=== PATIENT | female | born 1980 | race African-American/Black ===

== ENCOUNTER 2019-11-12 08:36 | Outpatient (CLI) | payer BC, SELFPAY ==
--- NOTE | ~2019-11-12 | US_ITS ---
EXAMINATION: US pelvic complete w TV DATE: 11/12/2019 09:22 INDICATION: Pelvic pain. TECHNIQUE: Multiple transabdominal and transvaginal sonographic images of the pelvis were obtained. COMPARISON: None. FINDINGS: TRANSABDOMINAL ULTRASOUND: The uterus measures 9.2 x 5.2 x 5.1 cm. There is trace free fluid in the pelvis. TRANSVAGINAL ULTRASOUND: The endometrial complex measures 14 mm in thickness. The right ovary measures 4.6 x 2.0 x 1.9 cm. The left ovary measures 2.7 x 2.3 x 1.8 cm. There is normal vascular flow in the ovaries. IMPRESSION: 1. Normal pelvis. Reviewed, dictated and finalized at location A. IMPRESSION: 1. Normal pelvis.
== END 2019-11-12 08:37 | disposition home or self-care (01) ==
PROVIDERS: PCP Internal Medicine; Visit Provider Nurse Practitioner
DX: R10.30 Lower abdominal pain, unspecified (principal)
CPT/HCPCS: 76830; 76856

== ENCOUNTER 2020-10-05 12:42 | Outpatient (CLI) | payer BC, SELFPAY ==
--- NOTE | ~2020-10-05 | CT_ITS ---
EXAMINATION: CT abdomen pelvis w con DATE: 10/05/2020 13:13 INDICATION: Abdominal pain for 2 weeks. Lower abdominal pain. Nausea. TECHNIQUE: Computed tomography (CT) of the abdomen and pelvis was performed with 100 cc Omnipaque 350 intravenous contrast. Automated exposure control and iterative reconstruction technique were employe d. Exam dose: 445.70 mGy-cm total exam DLP. COMPARISON: 12/13/2016 CT abdomen FINDINGS: The lung bases are clear. Normal heart size. No pericardial or pleural effusion. 12 mm left hepatic cyst. The liver is otherwise unremarkable. The gallbladder is present. No gallblad lazara wall thickening or pericholecystic fluid or fat stranding. Normal caliber of the bile ducts and p ancreatic duct. No pancreatic mass lesion or calcification. Normal splenic size. Normal morphology of the adrenal glands. Probable 3 mm right renal cyst, too small to definitively characterize. There are several left renal probable cysts including one larger cyst measuring 9 mm. No ureteral calculus or hydroureteronephrosi s. Normal caliber of the abdominal aorta. No intraperitoneal or retroperitoneal or pelvic mass lesion or lymphadenopathy. 4.2 cm right ovarian cyst. There is mild likely physiologic free fluid in the cul-de-sac. The urinary bladder is unremarkable. Normal appendix. No bowel obstruction, bowel wall thickening, pneumatosis or intraperitoneal free air is detected. Included skeletal structures are unremarkable. IMPRESSION: 4.2 cm right ovarian cyst 12 mm hepatic cyst Bilateral renal cysts Normal appendix Reviewed, dictated and finalized at [facility]. Reviewed, dictated and finalized at location A. EL BUFFER
== END 2020-10-05 12:43 | disposition home or self-care (01) ==
PROVIDERS: PCP Internal Medicine; Visit Provider Clinical Nurse Specialist
DX: R10.9 Unspecified abdominal pain (principal); K76.89 Other specified diseases of liver; N28.1 Cyst of kidney, acquired
CPT/HCPCS: 74177; Q9967

== ENCOUNTER 2020-11-03 15:08 | Outpatient (CLI) | payer BC, SELFPAY ==
--- NOTE | ~2020-11-03 | MR_ITS ---
EXAMINATION: MR cervical spine wo con EXAM DATE: 11/03/2020 15:52 INDICATION: Neck pain. TECHNIQUE: Multi-sequential, multiplanar MR images of the cervical spine were obtained without contra st. Axial T2, axial T2 MERGE sequence. Sagittal T1, T2, T2 fat saturation images also obtained. Th ere is no prior study for comparison. FINDINGS: The vertebral bodies are aligned in the AP dimension. Vertebral body and disc heights are well-maintained. The spinal cord signal intensity and intrinsic morphology is normal. Cervicomedullar y junction is normal in appearance. There are no suspicious marrow signal abnormalities. Paraspinal s oft tissue is unremarkable. Level by level evaluation: C2-C3: Disc does not extend beyond the endplate margin. Uncovertebral joint arthropathy: None. Facet joint arthropathy: None. Neural foraminal stenosis: No stenosis. Central canal stenosis: No stenosis. C3-C4: Disc does not extend beyond the endplate margin. Uncovertebral joint arthropathy: Mild bilateral. Facet joint arthropathy: Mild bilateral. Neural foraminal stenosis: No stenosis. Central canal stenosis: No stenosis. C4-C5: Disc does not extend beyond the endplate margin. Uncovertebral joint arthropathy: Mild bilateral. Facet joint arthropathy: Mild bilateral. Neural foraminal stenosis: No stenosis. Central canal stenosis: No stenosis. C5-C6: Disc does not extend beyond the endplate margin. Uncovertebral joint arthropathy: Mild bilateral. Facet joint arthropathy: Mild bilateral. Neural foraminal stenosis: No stenosis. Central canal stenosis: No stenosis. C6-C7: Disc does not extend beyond the endplate margin. Uncovertebral joint arthropathy: Mild bilateral. Facet joint arthropathy: Mild bilateral. Neural foraminal stenosis: No stenosis. Central canal stenosis: No stenosis. C7-T1: Disc does not extend beyond the endplate margin. Uncovertebral joint arthropathy: None. Facet joint arthropathy: Mild bilateral. Neural foraminal stenosis: No stenosis. Central canal stenosis: No stenosis. IMPRESSION: 1. Mild cervical arthropathy. No stenosis. Reviewed, dictated and finalized at location A.
== END 2020-11-03 15:09 | disposition home or self-care (01) ==
PROVIDERS: PCP Internal Medicine; Visit Provider Clinical Nurse Specialist
DX: M47.813 Spondylosis without myelopathy or radiculopathy, cervicothoracic region (principal)
CPT/HCPCS: 72141

== ENCOUNTER 2021-08-23 11:04 | Outpatient (CLI) | payer BC, SELFPAY ==
--- NOTE | ~2021-08-23 | XR_ITS ---
EXAMINATION: XR chest 2V EXAM DATE: 08/23/2021 11:22 INDICATION: Cough. TECHNIQUE: Frontal and lateral projections of the chest obtained and reviewed. There is no prior supa dy for comparison. FINDINGS: The lungs are clear. There are no pleural effusions. The cardiomediastinal silhouette is within normal limits. There is no pneumothorax suspected. The bones and soft tissues are unremarkab le. IMPRESSION: No acute cardiopulmonary findings. Reviewed, dictated and finalized at location A. PROCEDURE
--- NOTE | 2021-08-23 11:24 | ECG_ITS ---
Measurements Intervals [place] Rate: 82 P: 80 SD: 160 QRS: 67 QRSD: 86 T: 0 QT: 357 QTc: 419 Interpretive Statements SINUS RHYTHM NONSPECIFIC T-WAVE ABNORMALITY- INFERIOR LEADS BASELINE WANDER- I, II BORDERLINE ECG Electronically Signed On 08-23-2021 12:43:58 [employer] by Markos Whitman D.O.
== END 2021-08-23 11:05 | disposition home or self-care (01) ==
PROVIDERS: PCP Internal Medicine; Visit Provider Nurse Practitioner
DX: R07.9 Chest pain, unspecified (principal); R05.9 Cough, unspecified; R94.31 Abnormal electrocardiogram [ECG] [EKG]
CPT/HCPCS: 71046; 93005

== ENCOUNTER 2022-11-07 13:30 | Outpatient (RCR) | payer BC, SELFPAY ==
--- NOTE | 2022-09-05 13:46 | PTOPEVAL1 ---
Assessment and note entered by Mary Jane Stover, PT Evaluation Information Assessment Status Evaluation Diagnosis dorsalgia, chronic pain Onset January 2022 Subjective Information about 6 months ago, without injury or trauma to back/neck; have been to chiropractor for neck adjustments and ribs out of place; MRI of neck about 3 years ago- did not really show much; try to do yoga and relaxation;have exer ball at home Reported Pain Level Pain Score Self Report Additional Pain Score Comments pain range of 5-9/10; sharp, throb, dull pain; cervical R > L; R upper traps, anterior shoulder/ clavicle areas; headache R base of neck-- 2x/ month- take meds over the counter for it; increase pain: when wake up in AM, sitting; decrease pain with: move around, stretch neck, ibuprofen, heat, get massage every 2 wk; tolerances: sleeping--is OK, sleep on her side R/L have home stim unit- have not used in awhile--not sure how to place the pads Assessment PT Clinical Summary Sana has the diagnosis of dorsalgia and chronic pain. She reports chronic history of neck and back pain. Now, neck is most pain. Self assessment Neck Disability Index of 24% limitation in activity. She also has headaches about 2x/ month. Pain increases with sitting too long and when first wake up in the AM. And decreased with stretching and heat. With the evaluation, she has poor positioning of her cervical-thoracic spine, with rounded shoulders; pain is increased with cervical rotation to R and L, flexion and side bend to R & L; R shoulder flexion and IR increase pain also. Skilled PT services are indicated to decrease pain and spasms, therapeutic exercises to stretch and strengthen cervical-thoracic complex, to improve posture and education for home exercises and work station set up. Plan of Care Interventions Electrical Stimulation,Hot Pack/Cold Pack,Manual Therapy,Mechanical Traction,Patient/Caregiver Education,Therapeutic Activities,Therapeutic Exercise,Ultrasound,Other Other Interventions taping PT Services Indicated Yes Treatment Frequency and 1-2x/wk for 5 weeks, depending upon her work Duration
--- NOTE | 2022-09-12 17:42 | PCPTNOTE ---
Patient was scheduled to be seen for outpatient PT this date however, patient was a no show for her appointment.
--- NOTE | 2022-11-07 14:27 | PTOPPROG ---
Assessment and note entered by Mary Jane Stover, PT Evaluation Information Assessment Status Progress Diagnosis dorsalgia, chronic pain Onset January 2022 Subjective Information Sana reports: continues to have neck pain and headaches; have been doing the exercises, stretching over the foam roll, watching posture and have good computer set up; about every hour at work, gets up from her desk, stretches and moves around; using home TENS unit at home when neck is really tight; has been going to the chiropractor for adjustments about once/month; wants to follow up with her provider, to check her and see if she needs an MRI; pain range in past week 6-8/10; dull, achey, muscle tightness, feel like strained; R lateral neck and anterior shoulder/clavicle areas; increase pain- sit too long at desk; decrease pain ibuprofen,heat, stim; stretches help some, but short lived relief; headache- dull at forehead and lateral R head, 3x/ past week, take ibuprofen; reinforced and reinstructed on TENS pad placement and settings; at home, has theracane for pressure points, occipital release tool and using PRN Assessment PT Clinical Summary Sana has received 7 PT sessions, from September 05 to today. Compared to the initial evaluation: pain rating about the same 5-9/10 and now 6-8/10; self assessment Neck Disability Index improved from 24% to 22% limitation in activity level; headaches have increased from 2/month to 3x/past week; cervical rotation ROM to L has increased slightly but still increases her pain at R side neck; no longer has pain increased with active cervical rotation R, flexion and side bend to R and R shoulder IR motions; she has increased postural awareness with sleeping, work station set up and taking frequent positional breaks; Education has been completed for home exercises, pain management, posture. The goals were partially achieved. She wants to follow up with her provider and discuss an MRI and if needs more therapy.
--- NOTE | 2022-12-13 10:42 | PCPTNOTE ---
PHYSICAL THERAPY DISCHARGE 12-13-22 Attending Provider: ANIRUDH Garland Patient:Sana Beverly Date of :1980 Sana has not returned for any further treatments since the progress report dated 11/07/2022, additional therapy orders were not received. She will be discharged at this time. Thank you for referring this patient to [facility].
== END 2022-12-03 12:44 | disposition home or self-care (01) ==
LOC: ANHPT 13:30
PROVIDERS: PCP Internal Medicine; Visit Provider Clinical Nurse Specialist
DX: G89.29 Other chronic pain (principal); M54.9 Dorsalgia, unspecified
CPT/HCPCS: 97014; 97110; 97140; 97161; 97530; 99199; G0283